=== PATIENT | male | born 1985 | race Caucasian/White ===

== ENCOUNTER → 2019-02-26 | Day surgery (SDC) | payer OTHER ==
[~2019-02-26] VITALS: Ht 180.3 cm; Wt 79.4 kg
[~2019-02-26] MED LIST: LEVO75TA4 PO; LIDOCAINE 1% MDV 20ML VIAL SQ PRN; LIOT5TAB6 PO; LR 1,000 ML IV ONE; META0.52 PO
== END | disposition home or self-care (01) ==
LOC: M SDC 08:12
PROVIDERS: ATTEND Urology
DX: Q55.22 Retractile testis (principal); Z53.09 Procedure and treatment not carried out because of other contraindication; H66.90 Otitis media, unspecified, unspecified ear; R05 Cough